=== PATIENT | male | born 1940 | race Caucasian/White ===

== ENCOUNTER 2016-06-17 13:04 | Day surgery (SDC) | payer BC ==
[2016-06-14 11:44] LABS: HEMATOCRIT 38.7 % (40.0-51.0); HEMOGLOBIN 13.7 g/dL (13.6-17.8)
[2016-06-14 11:54] LABS: BUN (BLOOD UREA NITROGEN) 16 MG/DL (6-23); CALCIUM, SERUM 9.5 MG/DL (8.5-10.4); CHLORIDE, SERUM 105 MMOL/L (96-112); CO2 (CARBON DIOXIDE) 29 MMOL/L (24-34); CREATININE 1.06 MG/DL (0.70-1.30); GFR AFRICAN AMERICAN 78 ML/MIN (>=60); GFR NON AFRICAN AMERICAN 67 ML/MIN (>=60); GLUCOSE, SERUM 164 MG/DL (60-99); POTASSIUM, SERUM 4.1 MMOL/L (3.5-5.3); SODIUM, SERUM 139 MMOL/L (135-148)
--- NOTE | ~2016-06-17 | OP ---
Record Of [id number] [facility] [place]. [address] NAME: LYLY TAYLOR : 38 STATUS : [facility]#: [id number] AGE: 76 ADM/REG DATE : 06/17/16 MR#: [id number] REPORT SERV DATE: 06/21/16 DICTATED BY: BRANDON CLEMENTS III GUERREROARSLAN DATE: 06/21/16 REPORT STATUS : Draft TRANSCRIBED BY: MODL DATE: 06/21/16 DATE OF PROCEDURE: 06/17/2016 PREOPERATIVE DIAGNOSIS: Bladder stone. POSTOPERATIVE DIAGNOSIS: Bladder stone. PROCEDURE: Cystolitholapaxy. SURGEON: Brandon Clements M.D. ANESTHESIA: General. SPECIMENS: Stone fragments. DRAINS: 16-Macedonian Owens catheter. BLOOD LOSS: Minimal. INDICATION: Mr. Taylor is a 76-year-old white male who has been found to have a rather large bladder calculus during the evaluation of gross hematuria. Consent is obtained for cystolitholapaxy. PROCEDURE IN DETAIL: After consent was obtained, the patient was identified. He was taken to the OR and put to sleep. He was positioned in the low lithotomy position, and prepped and draped in the usual fashion. A 22-Macedonian cystoscope was made ready and advanced along the course of urethra and into the bladder. He did have an enlarged prostate which was seen to be obstructing the bladder outlet. A large stone was visualized. The holmium laser was made ready, 1000 Fiber was used. Ablation of the stone was then performed. Towards the end, there were several small fragments which were evacuated using the Ellik. After all fragments were evacuated, the bladder was irrigated. Because of the duration of the procedure, I decided to leave the catheter in place. A 16-Macedonian Owens catheter was inserted and the balloon inflated to 10 mL. The patient was then awakened and taken to recovery in stable condition. PH/MODL Brandon Clements III, M.D. / [id number] CC: Brandon Clements III, M.D. Record Of [id number] [facility] [place]. [address] NAME: LYLY TAYLOR : 38 STATUS : [facility] PAT#: [id number] AGE: 76 ADM/REG DATE : 06/17/16 MR#: [id number] REPORT SERV DATE: 06/21/16 DICTATED BY: BRANDON CLEMENTS III DATE: 06/21/16 REPORT STATUS : Draft TRANSCRIBED BY: MODL DATE: 06/21/16 Armando Guerra M.D.
[~2016-06-17 13:04] MED LIST: ALEVE220 MG PO; AMB10 PO; ATEN25 PO; ATEN50 PO; CIP5 PO; COZ25 PO; EFFEXOR XR150 MG PO; EFFEXXR75 PO; FLOMAX4 PO; FORTAMET1000 MG PO; KLONO5 PO; LORT7 PO; MELA3 PO; MEVACOR40 MG PO; VITAMIN B-121000 MC1 SL; VYTORIN 10/20 T1 TAB PO
[2016-06-22 20:49] LABS: STONE COMPOSITION TWO DNR (())
== END 2016-06-17 18:11 | disposition home or self-care (01) ==
LOC: SDC 13:04
PROVIDERS: Urology
PROC: 0TCB8ZZ Extirpation of Matter from Bladder, Via Natural or Artificial Opening Endoscopic (ICD-10-PCS; principal; 2016-06-17 14:15)
DX: N21.0 Calculus in bladder (principal); E78.00 Pure hypercholesterolemia, unspecified; I10 Essential (primary) hypertension; K57.92 Diverticulitis of intestine, part unspecified, without perforation or abscess without bleeding; K44.9 Diaphragmatic hernia without obstruction or gangrene; K64.9 Unspecified hemorrhoids; H26.9 Unspecified cataract; H40.9 Unspecified glaucoma; N40.0 Benign prostatic hyperplasia without lower urinary tract symptoms; N20.0 Calculus of kidney; E11.9 Type 2 diabetes mellitus without complications; F32.9 Major depressive disorder, single episode, unspecified; Z85.820 Personal history of malignant melanoma of skin; Z98.890 Other specified postprocedural states; Z79.899 Other long term (current) drug therapy; Z79.84 Long term (current) use of oral hypoglycemic drugs
CPT/HCPCS: 80048; 82365; 82962; 85014; 85018; 93005; A9270-GY; J2270; J2405; J3010